=== PATIENT | female | born 1995 | race African-American/Black ===

== ENCOUNTER 2017-12-16 08:28 | Emergency (ER) | payer OTHER ==
[~2017-12-16] VITALS: Ht 152.4 cm; Wt 60.3 kg
[~2017-12-16 08:28] MED LIST: CIPROFLOXACIN500 M1 PO; FLAGYL500 MG PO; NORCO 5-325 TA1 EACH PO
[2017-12-16] MEDS ORDERED: PRENATAL PO (08:44)
[2017-12-16 11:39] VITALS: BP 131/82
== END 2017-12-16 11:40 | disposition home or self-care (01) ==
LOC: ER
DX: O9A.213 Injury, poisoning and certain other consequences of external causes complicating pregnancy, third trimester (principal); Z3A.29 29 weeks gestation of pregnancy; S20.219A Contusion of unspecified front wall of thorax, initial encounter; Y04.8XXA Assault by other bodily force, initial encounter; Y93.89 Activity, other specified; Y92.89 Other specified places as the place of occurrence of the external cause; Y99.8 Other external cause status